=== PATIENT | female | born 1970 | race Asian ===

== ENCOUNTER 2016-12-08 06:49 | Day surgery (SDC) | payer BC, OTHER ==
[~2016-12-08 06:49] MED LIST: BUPIVACAINE HCL 0.5 % INJ/PF 30 ML SDV ONE; CEFAZOLIN 1 GM/D5W RTU 1 GM/50 ML RTUPB IV PRN; CEFAZOLIN SODIUM 1 GM in DEXTROSE 5%-WATER 50 ML IV PRN; LIDOCAINE 2% INJ (20 MG/ML) 20 ML MDV ONE
[2016-12-08] MEDS ORDERED: MIDAZOLAM 2 MG/2 ML INJ ONE (07:00)
[2016-12-08] MEDS ORDERED: FENTANYL CITRATE INJ/PF 250 MCG/5 ML AMPULE ONE (07:01)
[2016-12-08] MEDS ORDERED: PROPOFOL INJ 200 MG/20 ML VIAL IV ONE ×2 (07:01→10:14)
[2016-12-08] MEDS ORDERED: LIDOCAINE 2% INJ-PF (20 MG/ML) 10 ML AMPUL ONE (07:09)
[2016-12-08] MEDS ORDERED: ONDANSETRON HCL INJ/PF 4 MG/2 ML SDV ONE (07:33)
[2016-12-08] MEDS ORDERED: METOCLOPRAMIDE HCL INJ/PF 10 MG/2 ML SDV ONE (07:33)
[2016-12-08] MEDS: BACITRACIN INJ 50,000 UNIT VIAL ONE ×2 (08:40)
[2016-12-08] MEDS: POLYMYXIN B SULFATE INJ 500000 UNIT VIAL ONE ×2 (08:40)
[2016-12-08] MEDS: NORMAL SALINE INJ/PF 0.9% 10 ML SDV ONE ×2 (08:40)
--- NOTE | 2016-12-08 11:43 | SURGICARE OPERATIVE REPORT E ---
[facility] Operative Report NAME: FERNANDA GEORGE AGE: 46Y DATE OF SURGERY: 12/08/2016 ROOM: PREOPERATIVE DIAGNOSES: 1. Coalition of mid tarsal joint, second metatarsal cuneiform joint right foot. 2. Hallux abductovalgus of the right foot. PROCEDURE: 1. Excision of coalition of the second metatarsal cuneiform joint of right foot. 2. Cassius bunionectomy with internal screw fixation of right foot. SURGEON: JUDITH HERNANDES DPM CONTRACT SPECIALIST: Annette Ruiz DPM PROCEDURE: On 12/08/2016, patient was admitted to [facility], [place] with a complaint of painful right foot. The patient was taken to the operating room where following induction of intravenous sedation and regional local anesthesia, the patient's right foot and leg were prepped and draped in usual sterile manner. A tourniquet was placed proximal to the ankle malleoli. Esmarch was applied. Tourniquet was inflated to a level of 250 mmHg. Sterile draping was completed. The following procedure was performed. Esmarch was removed. Attention was directed to the dorsal aspect of the patient's right mid tarsus where there was palpable enlargement of the second metatarsal cuneiform joint. Incision was made just lateral to the enlargement to avoid the neurovascular bundle portion just medial to this area. It was deepened through the subcutaneous tissues and superficial fascia. All bleeding vessels were clamped, ligated, and bovied as necessary for hemostasis. Utilizing blunt dissection, dissection was carried down to the capsular and periosteal structures of the second metatarsal cuneiform joint. The incision was made in the capsular and periosteal structures. Utilizing a 15 blade, the capsular structures were retracted medial and laterally as necessary for preservation. Thus bringing into view the coalition of the second metatarsal cuneiform joint. Utilizing a Rongeur, bone was removed until the margins were flush with the surrounding bone. The second metatarsal cuneiform joint was identified. It appeared that there were some erosions in the dorsal most aspect of the joint but visual inspection did not reveal any further interarticular degeneration of cartilage. It was felt at this time there were some rough edges and utilizing the power rasp, all sharp edges were then rasped smooth and flushed with copious amounts of sterile antibiotic solution. This was inspected for any soft tissue or osseous debris with none noted. The second metatarsal cuneiform joint was then placed through a full range of motion. There was no impingement. It was felt that the coalition was adequately reduced at this time. Bone wax was applied to any exposed medullary bone surfaces. The capsular and periosteal structures were then coapted and maintained with simple interrupted suture of 3-0 Vicryl. Subcutaneous tissue was coapted and maintained with simple interrupted suture of 4-0 Vicryl and skin incision was coapted and maintained with running subcuticular suture of 5-0 Vicryl. Next procedure, Cassius bunionectomy with internal screw fixation. This was directed to the dorsal aspect of the patient's first metatarsophalangeal joint, where a 4 cm curvilinear incision was placed medial to the longus extensor tendon which was deepened through the subcutaneous tissue and superficial fascia. All bleedings vessels were clamped, ligated, and bovied as necessary for hemostasis. The longus extensor tendon was identified, undermined, and retracted laterally for preservation. Incision was made in the capsular and periosteal structures of the first metatarsophalangeal joint. Capsular and periosteal structures were freed from the osteal attachments and retracted medially and laterally for preservation, thus bringing into view the hypertrophied medial aspect of the first metatarsal head. It was then osteotomized dorsal to plantar removing approximately 2 mm wedge of bone with the sagittal saw. At that time, a chevron type osteotomy was then performed from medial to lateral with the apex placed distally. The head of the first metatarsal was freed from the shaft and transposed in a more lateral position for reduction of intermetatarsal angle. It was then impacted and temporarily fixated with 0.45 K-wire. At that time utilizing the Arthrex screw set, a 3 mm cannulated screw was then inserted from dorsal distal, to plantar proximal for fixation. It was 22 mm in length. Placement of this screw and length were all verified with fluoroscopic studies. It was felt that there was need for additional fixation. A 0.062 K-wire was then inserted from dorsal proximal to plantar distal. This threaded K-wire was cut flush with the bone proximally. This was all verified for placement with fluoroscopic studies. The osteotomy was stably fixated in good anatomical alignment. There was redundancy of bone on the medial aspect of the first metatarsal shaft which was then osteotomized flush with metatarsal shaft and removed. All sharp osseous edges were rasped smooth. It was felt that the hallux was still in a somewhat lateral contracted position. The lateral release was then performed, thus reducing the valgus deviation. The hallux was also noted to be somewhat dorsiflexed and felt that the extensor hallucis tendon was in a short position. At that time, Z-plasty lengthening was then performed. It was coapted and maintained with running locking suture of 3-0 FiberWire. At that time, the area was flushed with copious amounts of sterile antibiotic solution. This was inspected for any soft tissue or osseous debris with none noted. Bone wax was applied to all exposed medullary surfaces. The capsular and periosteal structures were then coapted and maintained with simple interrupted suture of 3-0 Vicryl. Subcutaneous tissue was then coapted and maintained with simple interrupted suture of 4-0 Vicryl. Skin incision was coapted and maintained with running subcuticular suture of 5-0 Vicryl. Steri-Strips applied to all incisions. Gilles silk, 4 x 4s, Tisha, Kerlix, and CoFlex was applied to the patient's right foot. Tourniquet was rapidly deflated. Capillary filling time was noted to be instantaneous to all digits. The patient appeared to tolerate surgery and anesthesia well and left the OR in apparent good condition, all vital signs stable and was taken to the recovery room to be further monitored by the anesthesia department. DICTATING PHYSICIAN: JUDITH HERNANDES DPM [id number] PHY#: [id number] ID: [id number] JOB#: [id number] ACCT: [id number] cc:JUDITH HERNANDES DPM > [facility]
== END 2016-12-08 11:37 | disposition home or self-care (01) ==
LOC: SC 06:49
PROVIDERS: ATTEND Preventive Medicine Undersea and Hyperbaric Medicine
PROC: 0QBN0ZZ Excision of Right Metatarsal, Open Approach (ICD-10-PCS; 2016-12-08)
PROC: 0SB Lower Joints, Excision (ICD-10-PCS; principal; 2016-12-08 07:30)
DX: M20.11 Hallux valgus (acquired), right foot (principal); Q66.89 Other specified congenital deformities of feet; I10 Essential (primary) hypertension; Z79.899 Other long term (current) drug therapy; Z88.5 Allergy status to narcotic agent
CPT/HCPCS: 73620; 28296; 28116; C1713 ×3; C1769; J2250; J3490 ×5; J0690 ×2; J3010; J2765; J2405; J2704; 01480

== ENCOUNTER 2017-11-12 12:53 | Emergency (ER) | payer BC ==
[2017-11-12] MEDS ORDERED: PREDNISONE 20 MG TABLET PO ONE (13:11)
--- NOTE | 2017-11-12 13:12 | ER Document Report ---
ED Neuro Symptoms/Deficit - General Mode of Arrival: Ambulatory Information source: Patient TRAVEL OUTSIDE OF THE [place] IN LAST 30 DAYS: No - General Chief Complaint: Facial Droop Stated Complaint: POSSIBLE STROKE Time Seen by Provider: 11/12/17 13:06 Notes: Patient is a 47-year-old female who presents to the emergency department today with complaints of left-sided facial paralysis. Patient states she noticed this initially last night prior to going to sleep. Patient states she took a Benadryl and went to bed thinking that it could have been an allergic reaction. Patient states when she woke up she went to the mirror and noticed the paralysis was still there. Patient denies any headache or history of CVA. ( JUAN MIGUEL PRICE) - Related Data Allergies/Adverse Reactions: oxycodone HCl [From Percocet] Adverse Reaction (Mild, Verified 12/08/16 07:05) nausea and vomiting Past Medical History - General Information source: Patient - Social History Smoking Status: Never Smoker Cigarette use (# per day): No Chew tobacco use (# tins/day): No Frequency of alcohol use: None Drug Abuse: None Lives with: Family Family History: Reviewed & Not Pertinent Patient has suicidal ideation: No Patient has homicidal ideation: No - Past Medical History Cardiac Medical History: Reports: Hx Hypertension - MEDICATED Surgical Hx: Negative Review of Systems - Review of Systems Constitutional: No symptoms reported EENT: No symptoms reported Cardiovascular: No symptoms reported Respiratory: No symptoms reported Gastrointestinal: No symptoms reported Genitourinary: No symptoms reported Female Genitourinary: No symptoms reported Musculoskeletal: No symptoms reported Skin: No symptoms reported Hematologic/Lymphatic: No symptoms reported Neurological/Psychological: See HPI, Other - left ear pain, paralysis of left face. denies: Headaches -: Yes All other systems reviewed and negative Physical Exam - General General appearance: Appears well, Alert In distress: None - HEENT Head: Normocephalic, Atraumatic Eyes: Normal Conjunctiva: Normal - Respiratory Respiratory status: No respiratory distress Chest status: Nontender Breath sounds: Normal - Cardiovascular Rhythm: Regular Heart sounds: Normal auscultation Murmur: No - Abdominal Inspection: Normal Distension: No distension - Extremities General upper extremity: Normal inspection, Normal ROM. No: Edema General lower extremity: Normal inspection, Normal ROM. 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 Incomplete shutting of left eye. Consistent with Denny's palsy (JUAN MIGUEL PRICE) - Vital Signs Vital signs: Temp Pulse Resp BP Pulse Ox 98.3 F 70 18 157/86 H 99 11/12/17 14:15 11/12/17 14:15 11/12/17 14:15 11/12/17 14:15 11/12/17 14:15 Discharge - Discharge Clinical Impression: Denny's palsy Condition: Good Disposition: HOME, SELF-CARE Additional Instructions: If your eye is becoming dry, consider taping it closed. Buy an eye moisturizer such as Ocu-lube, eye lubricant. Return for weakness in arms legs or other change otherwise. Contact your primary care physician for follow-up in the next week. Finish all of the prednisone and the antiviral medication prescribed. Prescriptions: Famciclovir 500 mg PO TID #21 tablet Prednisone [Deltasone 20 mg Tablet] 2 tab PO DAILY 5 Days #10 tablet Scribe Documentation - Scribe Written by Codi:: Codi Mahmood, 11/12/2017 1533 acting as scribe for :: Arleen
[2017-11-12 14:19] VITALS: BP 157/86
== END 2017-11-12 14:10 | disposition home or self-care (01) ==
LOC: ER 12:53
DX: G51.0 Bell's palsy (principal)
CPT/HCPCS: 99283; J7512

== ENCOUNTER 2017-11-13 15:07 | Emergency (ER) | payer BC ==
[2017-11-13] MEDS ORDERED: METOCLOPRAMIDE HCL INJ/PF 10 MG/2 ML SDV IV ONE (16:23)
[2017-11-13] MEDS ORDERED: DIPHENHYDRAMINE HCL 50 MG/ML VIAL IV ONE (16:23)
[2017-11-13] MEDS ORDERED: NORMAL SALINE 1000 ML 1,000 ML IV PRN (16:23)
--- NOTE | 2017-11-13 16:26 | ER Document Report ---
ED Medical Screen (RME) - General Chief Complaint: Facial Droop Stated Complaint: NAUSEA Time Seen by Provider: 11/13/17 16:14 Mode of Arrival: Ambulatory Information source: Patient Notes: This is a 47-year-old female with a history of hypertension, diabetes and arthritis (Celebrex) who was diagnosed yesterday with a Denny's palsy and placed on famciclovir and prednisone. The patient presents to the emergency room with nausea, headache, generalized weakness. Patient states she i feels faint in triage Triage exam: Afebrile, mildly hypertensive, tachycardic with a heart rate of 106. Patient appears weak She is alert and oriented 3. Neuro exam shows left facial droop (complete consistent with peripheral nerve) No focal weakness: Patient does have generalized weakness. TRAVEL OUTSIDE OF THE [place] IN LAST 30 DAYS: No - Related Data Allergies/Adverse Reactions: oxycodone HCl [From Percocet] Adverse Reaction (Mild, Verified 11/13/17 15:08) nausea and vomiting Past Medical History - Social History Chew tobacco use (# tins/day): No Frequency of alcohol use: None Drug Abuse: None - Past Medical History Cardiac Medical History: Reports: Hx Hypertension - MEDICATED Denies: Hx Heart Attack Pulmonary Medical History: Denies: Hx Asthma Neurological Medical History: Denies: Hx Cerebrovascular Accident, Hx Seizures Endocrine Medical History: Reports: Hx Diabetes Mellitus Type 2 Renal/ Medical History: Denies: Hx Peritoneal Dialysis GI Medical History: Denies: Hx Hepatitis, Hx Hiatal Hernia, Hx Ulcer Infectious Medical History: Denies: Hx Hepatitis Past Surgical History: Denies: Hx Hysterectomy, Hx Mastectomy, Hx Open Heart Surgery, Hx Pacemaker Physical Exam - Vital signs Vitals: Temp Pulse Resp BP Pulse Ox 98.5 F 106 H 14 156/93 H 94 11/13/17 15:11 11/13/17 15:11 11/13/17 15:11 11/13/17 15:11 11/13/17 15:11 Course - Vital Signs Vital signs: Temp Pulse Resp BP Pulse Ox 98.5 F 106 H 14 156/93 H 94 11/13/17 15:11 11/13/17 15:11 11/13/17 15:11 11/13/17 15:11 11/13/17 15:11
[2017-11-13 16:54] LABS: ABSOLUTE LYMPHOCYTES (AUTO) 0.8 10^3/uL (0.5-4.7); ABSOLUTE MONOCYTES (AUTO) 0.3 10^3/uL (0.1-1.4); ABSOLUTE NEUT (AUTO) 13.4 10^3/uL (1.7-8.2); BASOPHILS % (AUTO) 0.1 % (0-2); HEMATOCRIT 41.4 % (36.0-47.0); HEMOGLOBIN 13.5 g/dL (12.0-15.5); LYMPHOCYTES % (AUTO) 5.6 % (13-45); MEAN CORPUSCULAR HEMOGLOBIN 27.8 pg (27.0-33.4); MEAN CORPUSCULAR HGB CONC 32.7 g/dL (32.0-36.0); MEAN CORPUSCULAR VOLUME 85 fl (80-97); MONOCYTES % (AUTO) 2.1 % (3-13); PLATELET COUNT 387 10^3/uL (150-450); RED BLOOD COUNT 4.86 10^6/uL (3.72-5.28); RED CELL DISTRIBUTION WIDTH 13.6 % (11.5-14.0); SEGMENTED NEUTROPHILS % (AUTO) 92.2 % (42-78); TOTAL CELLS COUNTED % (AUTO) 100 %; WHITE BLOOD COUNT 14.6 10^3/uL (4.0-10.5)
[2017-11-13 17:11] LABS: ALANINE AMINOTRANSFERASE 19 U/L (9-52); ALBUMIN 4.9 g/dL (3.5-5.0); ALKALINE PHOSPHATASE 69 U/L (38-126); ANION GAP 13 (5-19); ASPARTATE AMINO TRANSFERASE 21 U/L (14-36); BILIRUBIN,DIRECT 0.2 mg/dL (0.0-0.4); BILIRUBIN,TOTAL 0.3 mg/dL (0.2-1.3); BLOOD UREA NITROGEN 16 mg/dL (7-20); CALCIUM 10.6 mg/dL (8.4-10.2); CARBON DIOXIDE 27 mmol/L (22-30); CHLORIDE 102 mmol/L (98-107); GLUCOSE 165 mg/dL (75-110); POTASSIUM 4.5 mmol/L (3.6-5.0); SODIUM 141.9 mmol/L (137-145); TOTAL PROTEIN 8.3 g/dL (6.3-8.2)
--- NOTE | 2017-11-13 18:09 | ER Document Report ---
ED General - General Mode of Arrival: Ambulatory Information source: Patient TRAVEL OUTSIDE OF THE [place] IN LAST 30 DAYS: No <LESVIA COLMENARES - Last Filed: 11/13/17 23:17> <SENA LIRIANO - Last Filed: 11/13/17 23:21> - General Chief Complaint: Facial Droop Stated Complaint: NAUSEA Time Seen by Provider: 11/13/17 16:14 Notes: Patient is a 47-year-old female with a history of hypertension, diabetes and arthritis presents to the emergency department complaining of multiple symptoms including nausea, headache, diarrhea and weakness onset today. Patient was diagnosed yesterday with a Denny's palsy and placed on Famciclovir and Prednisone. Patient has no focal weakness except on left side of her face and also complains of decreased taste on left side of tongue. Patient is also currently taking Celebrex for her arthritis and Metformin for borderline diabetes. (LESVIA COLMENARES) - Related Data Allergies/Adverse Reactions: oxycodone HCl [From Percocet] Adverse Reaction (Mild, Verified 11/13/17 15:08) nausea and vomiting Past Medical History - General Information source: Patient - Social History Smoking Status: Never Smoker Chew tobacco use (# tins/day): No Frequency of alcohol use: None Drug Abuse: None Family History: Reviewed & Not Pertinent Patient has suicidal ideation: No Patient has homicidal ideation: No - Past Medical History Cardiac Medical History: Reports: Hx Hypertension - MEDICATED Endocrine Medical History: Reports: Hx Diabetes Mellitus Type 2 <LESVIA COLMENARES - Last Filed: 11/13/17 23:17> Review of Systems - Review of Systems Constitutional: See HPI, Weakness EENT: See HPI Cardiovascular: No symptoms reported Respiratory: No symptoms reported Gastrointestinal: See HPI Genitourinary: No symptoms reported Female Genitourinary: No symptoms reported Musculoskeletal: No symptoms reported Skin: No symptoms reported Hematologic/Lymphatic: No symptoms reported Neurological/Psychological: See HPI, Headaches -: Yes All other systems reviewed and negative <LESVIA COLMENARES - Last Filed: 11/13/17 23:17> Physical Exam <LESVIA COLMENARES - Last Filed: 11/13/17 23:17> <SENA LIRIANO - Last Filed: 11/13/17 23:21> - Vital signs Vitals: Temp Pulse Resp BP Pulse Ox 98.5 F 106 H 14 156/93 H 94 11/13/17 15:11 11/13/17 15:11 11/13/17 15:11 11/13/17 15:11 11/13/17 15:11 - Notes Notes: GENERAL: Alert, interacts well. No acute distress. HEAD: Normocephalic, atraumatic. See Neuro. EYES: Pupils equal, round, and reactive to light. Extraocular movements intact. See Neurological. ENT: Oral mucosa moist, tongue midline. No tongue deviation. TMs intact. NECK: Full range of motion. Supple. Trachea midline. LUNGS: Clear to auscultation bilaterally, no wheezes, rales, or rhonchi. No respiratory distress. HEART: Regular rate and rhythm. No murmurs, gallops, or rubs. ABDOMEN: Soft, non-tender. Non-distended. Bowel sounds present in all 4 quadrants. EXTREMITIES: Moves all 4 extremities spontaneously. No edema, radial and dorsalis pedis pulses 2/4 bilaterally. No cyanosis. NEUROLOGICAL: Alert and oriented x3. Normal speech. Cranial nerves consistent with Denny's Palsy. Normal sensations. Left facial droop with weakness around lips. Patient is able to completely close left eye although left eyebrow does not lower. Biceps and patellar DTRs 2+ bilaterally. PSYCH: Anxious. SKIN: Warm, dry, normal turgor. No rashes or lesions noted. (LESVIA COLMENARES) Course - Laboratory Result Diagrams: 11/13/17 16:39 11/13/17 16:39 <LESVIA COLMENARES - Last Filed: 11/13/17 23:17> - Laboratory Result Diagrams: 11/13/17 16:39 11/13/17 16:39 <SENA LIRIANO - Last Filed: 11/13/17 23:21> - Re-evaluation Re-evalutation: 11/13/17 18:33 Clinical presentation classic for Denny's palsy, no symptoms anywhere other than left side of the face, no weakness in the extremities. Patient already on appropriate treatment of steroids and antivirals. Patient is taking a steroid and a El 2 inhibitor, recommended either stopping the El 2 inhibitor or taking Zantac while taking the steroid. Patient will be provided with Zofran and Phenergan for nausea. Discharged to home. 11/13/17 23:20 There is no sign of stroke. There is no indication for CAT scan or MRI. Patient stated she had diarrhea however she further described as a single episode of loose stool. Headache is left-sided. No evidence of subarachnoid hemorrhage, no indication for lumbar puncture. (SENA LIRIANO) - Vital Signs Vital signs: Temp Pulse Resp BP Pulse Ox 97.9 F 66 15 130/72 H 95 11/13/17 19:28 11/13/17 19:28 11/13/17 19:28 11/13/17 19:28 11/13/17 19:28 - Laboratory Laboratory results interpreted by me: 11/13/17 11/13/17 16:39 16:39 WBC 14.6 H Seg Neutrophils % 92.2 H Lymphocytes % 5.6 L Monocytes % 2.1 L Absolute Neutrophils 13.4 H Glucose 165 H Calcium 10.6 H Total Protein 8.3 H Discharge <LESVIA COLMENARES - Last Filed: 11/13/17 23:17> <SENA LIRIANO - Last Filed: 11/13/17 23:21> - Discharge Clinical Impression: Denny's palsy, Nausea Medication side effect Qualifiers: Encounter type: initial encounter Qualified Code(s): T88.7XXA - Unspecified adverse effect of drug or medicament, initial encounter Condition: Stable Disposition: HOME, SELF-CARE Additional Instructions: [place]' Palsy You have been diagnosed as having Denny's Palsy -- a paralysis of certain muscles of the face. It's caused by a temporary paralysis of the nerve which controls the muscles. The cause is unknown, but it's thought to be caused by a virus in most cases. The physician's exam shows that this is NOT a stroke. Denny's Palsy usually gets better by itself. There is no cure. Sometimes cortisone-type medication is given to decrease nerve swelling. This problem is usually temporary, lasting about three weeks. During that time, you must protect the eye from injury (because the eyelid muscles often do not cover it). Ointment or a patch may be necessary. Be sure to follow up as instructed, and call the doctor at once if new symptoms arise. Report any eye pain, decreasing vision or double vision, or any numbness or weakness outside the face area. Either stop taking the Celebrex while you are on the steroids or start taking Zantac. You may buy this [id number] or you may use the prescription. I have also prescribed Zofran and Phenergan for the nausea. Prescriptions: Ondansetron [Zofran Odt 4 mg Tablet] 1 - 2 tab PO Q4HP PRN #10 tab.rapdis PRN Reason: Promethazine HCl [Phenergan 25 mg Tablet] 25 - 50 mg PO ASDIR PRN #12 tablet PRN Reason: Ranitidine HCl [Zantac 75 mg Tablet] 75 mg PO BID #14 tablet Forms: Return to Work Referrals: SPENCER DORMAN MD [ACTIVE STAFF] - Follow up in 1 week Scribe Attestation: 11/13/17 23:20 I personally performed the services described in the documentation, reviewed and edited the documentation which was dictated to the scribe in my presence, and it accurately records my words and actions. (SENA LIRIANO) Scribe Documentation - Scribe Written by Codi:: Codi Anguiano, 11/13/2017 18:17 acting as scribe for :: Sondra <LESVIA COLMENARES - Last Filed: 11/13/17 23:17>
[2017-11-13 19:31] VITALS: BP 130/72
== END 2017-11-13 19:31 | disposition home or self-care (01) ==
LOC: ER 15:07
DX: R11.0 Nausea (principal); T50.905A Adverse effect of unspecified drugs, medicaments and biological substances, initial encounter; G51.0 Bell's palsy; I10 Essential (primary) hypertension; R51 Headache; R19.4 Change in bowel habit; R53.1 Weakness; R73.03 Prediabetes; Z79.84 Long term (current) use of oral hypoglycemic drugs; M19.90 Unspecified osteoarthritis, unspecified site; Z79.1 Long term (current) use of non-steroidal anti-inflammatories (NSAID)
CPT/HCPCS: 99284; 96361; 96374; 96375; 36415; 85025; 80053; J1200; J2765; J7030

== ENCOUNTER 2017-11-21 17:11 | Emergency (ER) | payer BC ==
[2017-11-21] MEDS ORDERED: ONDANSETRON HCL INJ/PF 4 MG/2 ML SDV IV ONE ×2 (18:00→19:30)
[2017-11-21] MEDS ORDERED: NORMAL SALINE 1000 ML 1,000 ML IV ONE ×2 (18:00→20:15)
--- NOTE | 2017-11-21 18:02 | ER Document Report ---
ED Medical Screen (RME) - General Chief Complaint: Vomiting Stated Complaint: VOMITING Time Seen by Provider: 11/21/17 17:59 Mode of Arrival: Wheelchair Information source: Patient, Relative TRAVEL OUTSIDE OF THE [place] IN LAST 30 DAYS: No - HPI Patient complains to provider of: dizzy, vomiting Onset: This afternoon - pt felt well this am but started with dizziness sand vomiting earlier this afternoon - Related Data Allergies/Adverse Reactions: oxycodone HCl [From Percocet] Adverse Reaction (Mild, Verified 11/21/17 17:13) nausea and vomiting Past Medical History - Past Medical History Cardiac Medical History: Reports: Hx Hypertension - MEDICATED Denies: Hx Heart Attack Pulmonary Medical History: Denies: Hx Asthma Neurological Medical History: Denies: Hx Cerebrovascular Accident, Hx Seizures Endocrine Medical History: Reports: Hx Diabetes Mellitus Type 2 Renal/ Medical History: Denies: Hx Peritoneal Dialysis GI Medical History: Denies: Hx Hepatitis, Hx Hiatal Hernia, Hx Ulcer Infectious Medical History: Denies: Hx Hepatitis Past Surgical History: Denies: Hx Hysterectomy, Hx Mastectomy, Hx Open Heart Surgery, Hx Pacemaker Physical Exam - Vital signs Vitals: Temp Pulse Resp BP Pulse Ox 98.8 F 80 22 H 151/73 H 96 11/21/17 17:16 11/21/17 17:16 11/21/17 17:16 11/21/17 17:16 11/21/17 17:16 Course - Vital Signs Vital signs: Temp Pulse Resp BP Pulse Ox 98.8 F 80 22 H 151/73 H 96 11/21/17 17:16 11/21/17 17:16 11/21/17 17:16 11/21/17 17:16 11/21/17 17:16
--- NOTE | 2017-11-21 18:30 | RADIOLOGY REPORT (SQ) ---
EXAM DESCRIPTION: ACUTE ABDOMEN SERIES COMPLETED DATE/TIME: 11/21/2017 6:21 pm REASON FOR STUDY: vomiting COMPARISON: None. NUMBER OF VIEWS: Three views. TECHNIQUE: Frontal chest, supine abdomen and upright/decubitus abdomen radiographic images acquired. LIMITATIONS: None. FINDINGS: CHEST: Lungs clear of infiltrates. FREE AIR: None. No abnormal gas collections. BOWEL GAS PATTERN: Nonobstructive pattern. No dilated loops or air fluid levels. CALCIFICATIONS: No suspicious calcifications. HARDWARE: Surgical clips in the right upper quadrant. Hardware in the lower lumbar spine. SOFT TISSUES: No gross mass or suggestion of organomegaly. BONES: No acute fracture. No worrisome bone lesions. OTHER: No other significant finding. IMPRESSION: NO RADIOGRAPHIC EVIDENCE FOR ACUTE ABDOMINAL DISEASE. TECHNICAL DOCUMENTATION: JOB ID: [id number] [employer]- All Rights Reserved
[2017-11-21 18:52] LABS: ABSOLUTE BASOPHILS # (AUTO) 0.1 10^3/uL (0.0-0.2); ABSOLUTE EOSINOPHILS # (AUTO) 0.2 10^3/uL (0.0-0.6); ABSOLUTE LYMPHOCYTES (AUTO) 1.8 10^3/uL (0.5-4.7); ABSOLUTE MONOCYTES (AUTO) 0.5 10^3/uL (0.1-1.4); ABSOLUTE NEUT (AUTO) 7.6 10^3/uL (1.7-8.2); BASOPHILS % (AUTO) 0.9 % (0-2); EOSINOPHILS % (AUTO) 1.5 % (0-6); HEMATOCRIT 38.8 % (36.0-47.0); LYMPHOCYTES % (AUTO) 17.9 % (13-45); MEAN CORPUSCULAR HEMOGLOBIN 28.3 pg (27.0-33.4); MEAN CORPUSCULAR HGB CONC 33.4 g/dL (32.0-36.0); MEAN CORPUSCULAR VOLUME 85 fl (80-97); MONOCYTES % (AUTO) 5.2 % (3-13); PLATELET COUNT 301 10^3/uL (150-450); RED BLOOD COUNT 4.59 10^6/uL (3.72-5.28); RED CELL DISTRIBUTION WIDTH 13.8 % (11.5-14.0); SEGMENTED NEUTROPHILS % (AUTO) 74.5 % (42-78); TOTAL CELLS COUNTED % (AUTO) 100 %; WHITE BLOOD COUNT 10.2 10^3/uL (4.0-10.5)
[2017-11-21 18:54] LABS: APPEARANCE,URINE SLIGHTLY-CLOUDY; BILIRUBIN,URINE NEGATIVE (NEGATIVE); COLOR,URINE YELLOW; GLUCOSE, URINE NEGATIVE (NEGATIVE); KETONES,URINE 20 mg/dL (NEGATIVE); LEUKOCYTE ESTERASE,URINE NEGATIVE (NEGATIVE); NITRITE,URINE NEGATIVE (NEGATIVE); PROTEIN,URINE NEGATIVE (NEGATIVE); URINE SPECIFIC GRAVITY 1.018; UROBILINOGEN,URINE NEGATIVE mg/dL (<2.0)
[2017-11-21 19:48] LABS: ALANINE AMINOTRANSFERASE 25 U/L (9-52); ALBUMIN 4.1 g/dL (3.5-5.0); ALKALINE PHOSPHATASE 62 U/L (38-126); ANION GAP 8 (5-19); ASPARTATE AMINO TRANSFERASE 16 U/L (14-36); BILIRUBIN,DIRECT 0.1 mg/dL (0.0-0.4); BILIRUBIN,TOTAL 0.4 mg/dL (0.2-1.3); BLOOD UREA NITROGEN 14 mg/dL (7-20); CARBON DIOXIDE 29 mmol/L (22-30); CHLORIDE 102 mmol/L (98-107); GLUCOSE 148 mg/dL (75-110); SODIUM 138.5 mmol/L (137-145); TOTAL PROTEIN 6.9 g/dL (6.3-8.2)
[2017-11-21] MEDS ORDERED: HALOPERIDOL LACTATE INJ 5 MG/1 ML VIAL IV ONE (20:15)
[2017-11-21] MEDS ORDERED: ONDANSETRON ODT 4 MG TAB (6 TAB/ER DISP) PO PRN (20:17)
--- NOTE | 2017-11-21 20:18 | ER Document Report ---
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 Patient states that her symptoms started abruptly around noon today and have been persistent since that time. She states that she been unable to keep any fluids down since the onset of the vomiting. Nothing seems to improve or worsen her symptoms. Multiple sick contacts with similar symptoms. No recent history of similar symptoms. She denies any abdominal pain, chest pain or shortness of breath. No fever. TRAVEL OUTSIDE OF THE [place] IN LAST 30 DAYS: No - Related Data Allergies/Adverse Reactions: oxycodone HCl [From Percocet] Adverse Reaction (Mild, Verified 11/21/17 17:13) nausea and vomiting Past Medical History - General Information source: Patient, Relative - Social History Smoking Status: Former Smoker Frequency of alcohol use: None Drug Abuse: None Lives with: Family Family History: Reviewed & Not Pertinent Patient has suicidal ideation: No Patient has homicidal ideation: No - Past Medical History Cardiac Medical History: Reports: Hx Hypertension - MEDICATED Denies: Hx Heart Attack Pulmonary Medical History: Denies: Hx Asthma Neurological Medical History: Denies: Hx Cerebrovascular Accident, Hx Seizures Endocrine Medical History: Reports: Hx Diabetes Mellitus Type 2 Renal/ Medical History: Denies: Hx Peritoneal Dialysis GI Medical History: Denies: Hx Hepatitis, Hx Hiatal Hernia, Hx Ulcer Infectious Medical History: Denies: Hx Hepatitis Past Surgical History: Denies: Hx Hysterectomy, Hx Mastectomy, Hx Open Heart Surgery, Hx Pacemaker Review of Systems - Review of Systems Notes: Constitutional: Negative for fever. HENT: Negative for sore throat. Eyes: Negative for visual changes. Cardiovascular: Negative for chest pain. Respiratory: Negative for shortness of breath. Gastrointestinal: Positive for vomiting and diarrhea Genitourinary: Negative for dysuria. Musculoskeletal: Negative for back pain. Skin: Negative for rash. Neurological: Positive for headache 10 point ROS negative except as marked above and in HPI. Physical Exam - Vital signs Vitals: Temp Pulse Resp BP Pulse Ox 98.8 F 80 22 H 151/73 H 96 11/21/17 17:16 11/21/17 17:16 11/21/17 17:16 11/21/17 17:16 11/21/17 17:16 Interpretation: Hypertensive Notes: PHYSICAL EXAMINATION: GENERAL: Appears moderately uncomfortable but in no acute distress HEAD: Atraumatic, normocephalic. EYES: Pupils equal round and reactive to light, extraocular movements intact, sclera anicteric, conjunctiva are normal. ENT: nares patent, oropharynx clear without exudates. Dry mucous membranes. NECK: Normal range of motion, supple without lymphadenopathy LUNGS: Breath sounds clear to auscultation bilaterally and equal. No wheezes rales or rhonchi. HEART: Regular rate and rhythm without murmurs ABDOMEN: Soft, nontender, normoactive bowel sounds. No guarding, no rebound. No masses appreciated. EXTREMITIES: Normal range of motion, no pitting or edema. No cyanosis. NEUROLOGICAL: No focal neurological deficits. Moves all extremities spontaneously and on command. PSYCH: Normal mood, normal affect. SKIN: Warm, Dry, normal turgor, no rashes or lesions noted. Course - Re-evaluation Re-evalutation: 11/21/17 20:15 Presentation of an overall well-appearing patient in no acute distress with complaints of nausea, vomiting and diarrhea. This is consistent with likely viral gastroenteritis. Patient has no abdominal tenderness on exam and specifically no tenderness in the RLQ, LLQ, RUQ. Overall well hydrated on exam. Able to tolerate oral intake here in the emergency department. Low clinical suspicion for any acute life-threatening etiology based on exam and history including acute cholecystitis, SBO, appendicitis, nephrolithiasis, or pylonephritis. CMP without evidence of acute hepatitis or significant dehydration. Patient did also complain of a headache that has been unchanged since he was diagnosed with Denny palsy. Nothing new or different in regards to her headache today to warrant further neuro imaging or further assessment of the headache. Will plan for discharge at this time with return precautions and followup recommendations. She is At this time will discharge with return precautions and follow-up recommendations. Verbal discharge instructions given a the bedside and opportunity for questions given. Medication warnings reviewed. Patient is in agreement with this plan and has verbalized understanding of return precautions and the need for primary care follow-up in the next 24-72 hours. - Vital Signs Vital signs: Temp Pulse Resp BP Pulse Ox 98.8 F 80 17 112/64 97 11/21/17 17:16 11/21/17 17:16 11/21/17 21:54 11/21/17 21:54 11/21/17 21:54 - Laboratory Result Diagrams: 11/21/17 18:33 11/21/17 19:19 Laboratory results interpreted by me: 11/21/17 11/21/17 18:33 19:19 Creatinine 0.50 L Glucose 148 H Urine Ketones 20 H Urine Ascorbic Acid 40 H - Diagnostic Test Radiology reviewed: Image reviewed, Reports reviewed Radiology results interpreted by me: 11/22/17 03:55 Abdominal series x-ray: No acute fracture or dislocation Discharge - Discharge Clinical Impression: Vomiting and diarrhea Headache Qualifiers: Headache type: unspecified Headache chronicity pattern: chronic headache Intractability: intractable Qualified Code(s): R51 - Headache Condition: Good Disposition: HOME, SELF-CARE Additional Instructions: Your symptoms are likely due to a viral illness and should resolve in the next several days. You can take nqkw-xck-rmzhhsi loperamide also known as Imodium as needed for diarrhea per box instructions. Continue to stay hydrated with plenty of solution such as Gatorade or Pedialyte. You are being prescribed Zofran to take as needed for nausea and vomiting. Please return if you develop severe abdominal pain, pass out, become unable to tolerate any oral fluids for 12 more hours, or any other symptoms that are concerning to you. Referrals: RONALDO KLEIN MD [Primary Care Provider] - Follow up as needed
[2017-11-21 22:05] VITALS: BP 112/64
== END 2017-11-21 22:05 | disposition home or self-care (01) ==
LOC: ER 17:11
DX: R11.2 Nausea with vomiting, unspecified (principal); R19.7 Diarrhea, unspecified; R51 Headache; G51.0 Bell's palsy; Z87.891 Personal history of nicotine dependence
CPT/HCPCS: 96376; 99284; 96361; 96374; 96375; 36415; 85025; 80053; 81001; 74022; J1630; J2405; J7030

== ENCOUNTER → 2018-05-08 | Outpatient (CLI) | payer BC ==
--- NOTE | 2018-05-10 16:11 | WOMENS IMAGING REPORT ---
EXAM DESCRIPTION: BILAT SCREENING MAMMO W/CAD COMPLETED DATE/TIME: 05/08/2018 8:06 am REASON FOR STUDY: SCREENING MAMMO Z12.31 ENCNTR SCREEN MAMMOGRAM FOR MALIGNANT NEOPLASM OF [place]ETA COMPARISON: 11/16/2016 TECHNIQUE: Standard craniocaudal and mediolateral oblique views of each breast recorded using digita l acquisition. LIMITATIONS: None. FINDINGS: No masses, calcifications or architectural distortion. No areas of suspicion. Read with the assistance of CAD. .[facility] - R2 Cenova Version 1.3 .[facility] Imaging - R2 Cenova Version 1.3 .[facility] - R2 Cenova Version 2.4 .[facility] [place] - R2 Cenova Version 2.4 .[facility] - R2 Entry Processor Version 9.2 IMPRESSION: NORMAL MAMMOGRAM. BIRADS 1. BREAST DENSITY: c. The breasts are heterogeneously dense, which may obscure small masses. BIRAD: 1 NEGATIVE RECOMMENDATION: ROUTINE SCREENING Please consider bilateral screening tomosynthesis in April 2019, given heterogeneously dense tissue COMMENT: The patient has been notified of the results by letter per SA requirements. Additional no tification policies are in place for contacting patient with suspicious or incomplete findings. Quality ID #[id number]: The [employer] recommends an annual screening mammogram for women aged 40 years or over. This facility utilizes a reminder system to ensure that all patients receive reminder letters, and/or direct phone calls for appointments. This includes reminders for routine scr eening mammograms, diagnostic mammograms, or other Breast Imaging Interventions when appropriate. Th is patient will be placed in the appropriate reminder system. The [employer] (ACR) has developed recommendations for screening MRI of the breast s in certain patient populations, to be used in conjunction with mammography. Breast MRI surveillanc e may be appropriate for women with more than 20% lifetime risk of developing breast cancer as deter mined by genetic testing, significant family history of the disease, or history of mantle radiation f or Hodgkins Disease. ACR Practice Guidelines 2008. TECHNICAL DOCUMENTATION: FINDING NUMBER: (1) ASSESSMENT: (1) JOB ID: [id number] [employer]- All Rights Reserved Reading location - IP/workstation name: [email or web address]
== END ==
LOC: WI 08:00
PROVIDERS: ATTEND Family Medicine
DX: Z12.31 Encounter for screening mammogram for malignant neoplasm of breast (principal)
CPT/HCPCS: 77067

== ENCOUNTER → 2019-06-01 | Outpatient (CLI) | payer OTHER ==
--- NOTE | 2019-06-03 15:46 | WOMENS IMAGING REPORT ---
EXAM DESCRIPTION: BILAT SCREENING MAMMO W/CAD COMPLETED DATE/TIME: 06/01/2019 2:51 pm REASON FOR STUDY: (Z12.31)ENCNTR SCREEN MAMMOGRAM FOR MALIGNANT NEOPLASM OF WBMJIVF34.31 ENCNTR SCR EEN MAMMOGRAM FOR MALIGNANT NEOPLASM OF LORETA COMPARISON: 2017 EXAM PARAMETERS: Standard craniocaudal and mediolateral oblique views of each breast recorded using digital acquisition. Read with the assistance of CAD. .REPLACED BY [facility] - [employer] Repairer Version 9.2 LIMITATIONS: None. FINDINGS: RIGHT BREAST MASSES: Smooth round mass upper outer quadrant measuring 1.1 cm 8 cm the nipple CALCIFICATIONS: No new or suspicious calcifications. ARCHITECTURAL DISTORTION: None. DEVELOPING DENSITY: None. ASYMMETRY: None noted. OTHER: No other significant findings. LEFT BREAST MASSES: No suspicious masses. CALCIFICATIONS: No new or suspicious calcifications. ARCHITECTURAL DISTORTION: None. DEVELOPING DENSITY: Developing density upper outer quadrant 10 cm from the nipple ASYMMETRY: None noted. OTHER: No other significant findings. IMPRESSION: Mass in the right breast. Developing density in the left breast. 0 Incomplete: Needs Additional Imaging Evaluation and/or prior Mammograms for Comparison. BREAST DENSITY: c. The breasts are heterogeneously dense, which may obscure small masses. BIRAD: ASSESSMENT: 0 Incomplete: Needs Additional Imaging Evaluation and/or prior Mammograms for C omparison. RECOMMENDATION: RECOMMENDED FOLLOW-UP: Ultrasound on the right. Spot compression with ultrasound if indicated on the left. The patient will be contacted for additional imaging. COMMENT: The patient has been notified of the results by letter per MQSA requirements. Additional no tification policies are in place for contacting patient with suspicious or incomplete findings. Quality ID #225: The [employer] recommends an annual screening mammogram for women aged 40 years or over. This facility utilizes a reminder system to ensure that all patients receive reminder letters, and/or direct phone calls for appointments. This includes reminders for routine scr eening mammograms, diagnostic mammograms, or other Breast Imaging Interventions when appropriate. Th is patient will be placed in the appropriate reminder system. TECHNICAL DOCUMENTATION: FINDING NUMBER: (1) ASSESSMENT: (1) JOB ID: [id number] [employer]- All Rights Reserved Reading location - IP/workstation name: [email or web address]
== END ==
LOC: WI 14:26
PROVIDERS: ATTEND Family Medicine
DX: Z12.31 Encounter for screening mammogram for malignant neoplasm of breast (principal)
CPT/HCPCS: 77067

== ENCOUNTER → 2019-06-14 | Outpatient (CLI) | payer OTHER ==
--- NOTE | 2019-06-14 16:37 | WOMENS IMAGING REPORT ---
EXAM DESCRIPTION: U/S BREAST UNILAT LIMITED; LEFT DIAGNOSTIC MAMMO W/CAD COMPLETED DATE/TIME: 06/14/2019 1:27 pm; 06/14/2019 1:07 pm REASON FOR STUDY: INCONCLUSSIVE MAMMOGRAM;R92.2 RIGHT BREAST; INCONCLUSSIVE MAMMOGRAM;R92.2 R92.2 I NCONCLUSIVE MAMMOGRAM COMPARISON: 06/01/2019 EXAM PARAMETERS: Additional true lateral view in the left breast. Spot compression views in orthogo nal planes. LIMITATIONS: None. FINDINGS: BREAST LATERALITY: left MASSES: No suspicious masses. CALCIFICATIONS: No new or suspicious calcifications. ARCHITECTURAL DISTORTION: None. DEVELOPING DENSITY: None. ASYMMETRY: None noted. OTHER: Normal glandular tissue. BREAST ULTRASOUND: TECHNIQUE: Static and dynamic grayscale images acquired of the right breast in the specific areas of clinical/mammographic concern. Selected color Doppler images recorded. ELASTOGRAPHY PERFORMED: No. LIMITATIONS: None. FINDINGS: MASS: 9 x 9 x 9 mm anechoic mass with through transmission. Upper outer quadrant 10 to 11 o'clock. ELASTOGRAPHY CHARACTERISTICS: Not applicable. OTHER: No other significant finding. IMPRESSION: Normal fibroglandular tissue in the left breast. Right breast cysts. BREAST DENSITY: c. The breasts are heterogeneously dense, which may obscure small masses. BIRAD: ASSESSMENT: 2 Benign findings. RECOMMENDATION: RECOMMENDED FOLLOW UP: Birads 1 or 2: The patient should resume routine screening . SPECIFIC INTERVENTION/IMAGING/CONSULTATION RECOMMENDED:No additional intervention/ imaging/consultati on needed at this time. COMMUNICATION:The negative/benign results were communicated to the patient. COMMENT: The patient has been notified of the results by letter per SA requirements. Additional no tification policies are in place for contacting patient with suspicious or incomplete findings. Quality ID #225: The [employer] recommends an annual screening mammogram for women aged 40 years or over. This facility utilizes a reminder system to ensure that all patients receive reminder letters, and/or direct phone calls for appointments. This includes reminders for routine scr eening mammograms, diagnostic mammograms, or other Breast Imaging Interventions when appropriate. Th is patient will be placed in the appropriate reminder system. TECHNICAL DOCUMENTATION: FINDING NUMBER: (1) ASSESSMENT: (1) JOB ID: [id number] [employer]- All Rights Reserved Reading location - IP/workstation name: [facility]
--- NOTE | 2019-06-14 16:37 | WOMENS IMAGING REPORT ---
EXAM DESCRIPTION: U/S BREAST UNILAT LIMITED; LEFT DIAGNOSTIC MAMMO W/CAD COMPLETED DATE/TIME: 06/14/2019 1:27 pm; 06/14/2019 1:07 pm REASON FOR STUDY: INCONCLUSSIVE MAMMOGRAM;R92.2 RIGHT BREAST; INCONCLUSSIVE MAMMOGRAM;R92.2 R92.2 I NCONCLUSIVE MAMMOGRAM COMPARISON: 06/01/2019 EXAM PARAMETERS: Additional true lateral view in the left breast. Spot compression views in orthogo nal planes. LIMITATIONS: None. FINDINGS: BREAST LATERALITY: left MASSES: No suspicious masses. CALCIFICATIONS: No new or suspicious calcifications. ARCHITECTURAL DISTORTION: None. DEVELOPING DENSITY: None. ASYMMETRY: None noted. OTHER: Normal glandular tissue. BREAST ULTRASOUND: TECHNIQUE: Static and dynamic grayscale images acquired of the right breast in the specific areas of clinical/mammographic concern. Selected color Doppler images recorded. ELASTOGRAPHY PERFORMED: No. LIMITATIONS: None. FINDINGS: MASS: 9 x 9 x 9 mm anechoic mass with through transmission. Upper outer quadrant 10 to 11 o'clock. ELASTOGRAPHY CHARACTERISTICS: Not applicable. OTHER: No other significant finding. IMPRESSION: Normal fibroglandular tissue in the left breast. Right breast cysts. BREAST DENSITY: c. The breasts are heterogeneously dense, which may obscure small masses. BIRAD: ASSESSMENT: 2 Benign findings. RECOMMENDATION: RECOMMENDED FOLLOW UP: Birads 1 or 2: The patient should resume routine screening . SPECIFIC INTERVENTION/IMAGING/CONSULTATION RECOMMENDED:No additional intervention/ imaging/consultati on needed at this time. COMMUNICATION:The negative/benign results were communicated to the patient. COMMENT: The patient has been notified of the results by letter per SA requirements. Additional no tification policies are in place for contacting patient with suspicious or incomplete findings. Quality ID #225: The [employer] recommends an annual screening mammogram for women aged 40 years or over. This facility utilizes a reminder system to ensure that all patients receive reminder letters, and/or direct phone calls for appointments. This includes reminders for routine scr eening mammograms, diagnostic mammograms, or other Breast Imaging Interventions when appropriate. Th is patient will be placed in the appropriate reminder system. TECHNICAL DOCUMENTATION: FINDING NUMBER: (1) ASSESSMENT: (1) JOB ID: [id number] [email or web address]- All Rights Reserved Reading location - IP/workstation name: [email or web address]
== END ==
LOC: WI 12:44
PROVIDERS: ATTEND Family Medicine
DX: R92.2 Inconclusive mammogram (principal)
CPT/HCPCS: 76642